=== PATIENT | male | born 1990 | race American Indian/Alaskan Native ===

== ENCOUNTER 2016-11-26 10:08 | Emergency (ER) | payer SELFPAY ==
[2016-11-26 10:15] VITALS: BP 125/88
[2016-11-26] MEDS ORDERED: TETRACAINE 0.5% ONE (11:20)
[2016-11-26] MEDS ORDERED: FUL-GLO OP ONE (11:21)
[2016-11-26] MEDS ORDERED: TETRACAINE 0.5% OU PRN (11:26)
== END 2016-11-26 11:54 | disposition home or self-care (01) ==
LOC: ED 10:08
DX: H10.9 Unspecified conjunctivitis (principal); F17.200 Nicotine dependence, unspecified, uncomplicated
CPT/HCPCS: 99283

== ENCOUNTER 2018-11-20 20:55 | Emergency (ER) | payer SELFPAY ==
[2018-11-20 21:43] VITALS: BP 126/85
== END 2018-11-21 00:15 | disposition left against medical advice (07) ==
LOC: ED 20:55
DX: J20.9 Acute bronchitis, unspecified (principal); Z53.21 Procedure and treatment not carried out due to patient leaving prior to being seen by health care provider

== ENCOUNTER 2019-02-09 11:38 | Emergency (ER) | payer SELFPAY ==
[2019-02-09 12:04] VITALS: BP 119/81
--- NOTE | 2019-02-09 12:06 | Event Note ---
ED Screening Note Date of service: 02/09/19 Time: 12:02 ED Screening Note: 29 y/o male comes in for chest discomfort for 3 days. Admits to a cough. Some SOB worst with layong down better wiyh sitting up/ PMH None. This initial assessment/diagnostic orders/clinical plan/treatment(s) is/are ribera bject to change based on patients health status, clinical progression and re- assessment by fellow clinical providers in the ED. Further treatment and workup at subsequent clinical providers discretion. Patient/guardian urged not to elope from the ED as their condition may be serious if not clinically assessed and managed. Initial orders include:
[2019-02-09 12:28] LABS: Basophils % (Auto) 0.5 % (0.0-1.8); Eosinophils % (Auto) 0.1 % (0.0-4.3); Hematocrit 45.7 % (35.5-45.6); Hemoglobin 15.9 gm/dl (11.8-15.2); Lymphocytes # (Auto) 2.1 K/mm3 (1.2-5.4); Lymphocytes % (Auto) 34.4 % (13.4-35.0); Mean Corpuscular HGB Conc 35 % (32-34); Mean Corpuscular Volume 97 fl (84-94); Monocytes # (Auto) 0.8 K/mm3 (0.0-0.8); Monocytes % (Auto) 12.8 % (0.0-7.3); Platelet Count 341 K/mm3 (140-440); Red Blood Count 4.72 M/mm3 (3.65-5.03); Red Cell Distribution Width 13.6 % (13.2-15.2)
--- NOTE | 2019-02-09 12:54 | XRay Report ---
CHEST 2 VIEWS INDICATION / CLINICAL INFORMATION: chest pain and sob. COMPARISON: None available. FINDINGS: SUPPORT DEVICES: None. HEART / MEDIASTINUM: No significant abnormality. LUNGS / PLEURA: No significant pulmonary or pleural abnormality. No pneumothorax. ADDITIONAL FINDINGS: No significant additional findings. IMPRESSION: 1. No acute findings. Signer Name: Eduin Ruvalcaba MD Signed: 02/09/2019 12:49 PM Workstation Name: [id number]
[2019-02-09 13:10] LABS: Alanine Aminotransferase 50 units/L (7-56); Albumin 4.8 g/dL (3.9-5); BUN/Creatinine Ratio 6; Blood Urea Nitrogen 7 mg/dL (9-20); Calcium 9.7 mg/dL (8.4-10.2); Hemolysis Index 16
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
== END 2019-02-09 13:53 | disposition home or self-care (01) ==
LOC: ED 11:38
DX: R07.89 Other chest pain (principal); F17.200 Nicotine dependence, unspecified, uncomplicated; G89.29 Other chronic pain; Z79.899 Other long term (current) drug therapy
CPT/HCPCS: 36415; 71046; 80053; 83690; 84484; 85025; 93005; 93010